=== PATIENT | female | born 1950 | race Caucasian/White ===

== ENCOUNTER 2019-05-15 06:53 | Day surgery (SDC) | payer MEDICARE, OTHER ==
[~2019-05-15] VITALS: Ht 172.7 cm; Wt 73.5 kg
[2019-05-15 07:14] LABS: BASOPHILS 0.6 % (0-2); EOSINOPHILS 5.1 % (0-7); HEMATOCRIT 31.6 % (36.0-48.0); HEMOGLOBIN 10.5 g/dL (12-16); IMMATURE GRANULOCYTES 0.3 % (0-5); MCH 29.5 pg (26.0-34.0); MCHC 33.2 g/dL (31.0-37.0); MCV 88.8 fL (80.0-100.0); MEAN PLATELET VOLUME 9.1 fL (7.4-10.4); MONOCYTES 10.2 % (2-11); NEUTROPHILS 60.8 % (40-80); PLATELET COUNT 182 10x3/uL (130-400); RBC 3.56 10x6/uL (4.00-5.40); RDW 14.3 % (11.5-14.5); WBC 3.1 10x3/uL (4.8-10.8)
[2019-05-15 07:21] LABS: CALC OSMOLALITY 289 mosm/kg (275-300); CARBON DIOXIDE 24.4 mmol/L (21.0-32.0); CHLORIDE - SERUM 109 mmol/L (98-107); CREATININE - SERUM 0.8 mg/dL (0.6-1.3); GLUCOSE 97 mg/dL (74-106); POTASSIUM - SERUM 4.3 mmol/L (3.5-5.1); SODIUM 144 mmol/L (136-145); UREA NITROGEN 22 mg/dL (7-18); eGFR NON AFRICAN AMERICAN 76 mL/min (90-120)
[2019-05-15] MEDS ORDERED: ANSAID50 MG PO (07:39)
[2019-05-15] MEDS ORDERED: SINGULAIR10 MG PO (07:40)
[2019-05-15] MEDS ORDERED: NORVASC5 MG PO (07:40)
[2019-05-15] MEDS ORDERED: PEPCID AC20 MG PO (07:41)
[2019-05-15] MEDS ORDERED: ASCORBIC ACID500 MG PO (07:42)
[2019-05-15] MEDS ORDERED: ALBUTEROL SULF8.5 GM INH (07:43)
[2019-05-15] MEDS ORDERED: PLAQUENIL PO (07:47)
[2019-05-15 07:49] VITALS: BP 129/60; Ht 172.7 cm; Wt 73.5 kg
[2019-05-15] MEDS ORDERED: HYDROCODON-ACE1 EA10 PO (11:09)
--- NOTE | 2019-05-15 11:24 | NUR ---
OPA IN AIRWAY ON ADMIT TO RR
--- NOTE | 2019-05-15 12:55 | NUR ---
PT ASSISTED UP TO BATHROOM TO URINATE AND UNABLE
--- NOTE | 2019-05-15 13:47 | NUR ---
1320 VOIDED 1345 IV REMOVED AND PT FEELS BETTER
--- NOTE | 2019-05-15 14:29 | NUR ---
1320 VOIDED 1345 IV REMOVED 1400 PT D/C
--- NOTE | 2019-05-17 07:51 | OP ---
PATIENT NAME: BEBA WEBB MEDICAL RECORD: [id number] :52 LOCATION:D[facility] ADMISSION DATE: SURGEON: JOHNNY HANKS MD DATE OF OPERATION: 05/15/2019 PREOPERATIVE DIAGNOSES: 1. Biliary dyskinesia. 2. Lupus. 3. Hypertension. 4. Asthma. POSTOPERATIVE DIAGNOSES: 1. Biliary dyskinesia. 2. Lupus. 3. Hypertension. 4. Asthma. PROCEDURE: Laparoscopic cholecystectomy. SURGEON: Johnny Hanks MD REPORT OF PROCEDURE: The patient's abdomen was prepped and draped in sterile fashion. A cutdown was made on the superior aspect of the umbilicus, 0 Vicryls were placed on the fascia bilaterally and the fascia was incised with 15-blade. I then bluntly entered the peritoneal cavity and placed a 12-mm Ladarius port. Under direct visualization, a 5 mm trocar was placed in the epigastrium and 2 more 5-mm trocars were placed in the right subcostal region. The gallbladder was grasped and elevated. Cystic artery and cystic duct were dissected free and these were clipped proximally and distally and ligated in standard fashion. The gallbladder was taken off the liver bed using electrocautery and placed into the right upper quadrant. Any bleeding from the liver bed was then treated with electrocautery. At this point, the ports and insufflation were then removed and the gallbladder was taken out through the umbilicus. The umbilical fascia was closed with interrupted 0 Vicryls times 3. The wounds were then irrigated out with normal saline and infused with 10 mL of 0.25% Marcaine with epinephrine. The skin incisions were all closed with subcutaneous 5-0 Monocryl and dressed appropriately. COMPLICATIONS: None. CONDITION: Stable. ANESTHESIA: General endotracheal and local. BLOOD LOSS: Minimal. TRANSINT:[id number] Voice Confirmation ID: [id number] DOCUMENT ID: [id number] OPERATIVE REPORT [id number] JONJOHNNY BAPTISTE MD at 0751 CC: PATSY BEDOLLA MD [id number] DICTATION DATE: 05/15/19 1112 QUARTZ ORIENTATOR: 05/15/19 1312 [facility] 05/15/19 [place] [id number]
== END 2019-05-15 14:00 | disposition home or self-care (01) ==
LOC: D.OPS 06:53 → D.PAN 09:15 → D.OPS 10:00 → D.PAN 10:00 → D.OPS 14:00
PROVIDERS: ATTEND Surgery
DX: K81.1 Chronic cholecystitis (principal); Z01.812 Encounter for preprocedural laboratory examination

== ENCOUNTER 2019-05-22 13:30 | Outpatient (CLI) | payer MEDICARE, OTHER ==
[2019-05-15 07:49] VITALS: BMI 24.6
[~2019-05-22 13:30] MED LIST: ALBUTEROL SULF8.5 GM INH; ANSAID50 MG PO; ASCORBIC ACID500 MG PO; HYDROCODON-ACE1 EA10 PO; NORVASC5 MG PO; PEPCID AC20 MG PO; PLAQUENIL PO; SINGULAIR10 MG PO
== END 2019-05-22 14:00 | disposition home or self-care (01) ==
LOC: D.MAMMO 13:30
PROVIDERS: ATTEND Family Medicine
DX: Z12.31 Encounter for screening mammogram for malignant neoplasm of breast (principal)

== ENCOUNTER → 2019-09-17 10:45 | Outpatient (CLI) | payer MEDICARE, OTHER ==
[2019-05-15 07:49] VITALS: BMI 24.6
== END | disposition home or self-care (01) ==
LOC: D.MRI 10:45
PROVIDERS: ATTEND Orthopaedic Surgery
DX: M54.16 Radiculopathy, lumbar region (principal)